=== PATIENT | male | born 1990 | race African-American/Black ===

== ENCOUNTER 2016-08-27 19:50 | Emergency (ER) | payer OTHER ==
[~2016-08-27] VITALS: Ht 190.5 cm; Wt 90.7 kg
[2016-08-27] MEDS ORDERED: AUGM875T27 PO (21:52)
[2016-08-27] MEDS ORDERED: IBUPROFEN 800 MG TAB PO ONE (22:00)
[2016-08-27] MEDS ORDERED: AUGMENTIN 875 MG TAB PO ONE (22:00)
[2016-08-27 22:26] VITALS: BP 145/94
== END 2016-08-27 22:27 | disposition home or self-care (01) ==
LOC: M ED 21:44
DX: H65.193 Other acute nonsuppurative otitis media, bilateral (principal); J06.9 Acute upper respiratory infection, unspecified; F17.200 Nicotine dependence, unspecified, uncomplicated

== ENCOUNTER 2017-01-28 03:58 | Emergency (ER) | payer OTHER ==
[~2017-01-28] VITALS: Ht 190.5 cm; Wt 97.2 kg
[~2017-01-28 03:58] MED LIST: AUGM875T28 PO
[2017-01-28 04:05] VITALS: BP 129/71
[2017-01-28] MEDS ORDERED: BACT800T5 PO (04:43)
[2017-01-28] MEDS ORDERED: BACTRIM 160MG/800MG DS TAB PO ONE (04:45)
== END 2017-01-28 05:14 | disposition home or self-care (01) ==
LOC: M ED 03:58
DX: L03.213 Periorbital cellulitis (principal)

== ENCOUNTER 2017-07-29 21:10 | Emergency (ER) | payer OTHER ==
[2017-07-30] MEDS: PERCOCET 5MG/325MG TAB PO (00:14)
[2017-07-30] MEDS: COLCHICINE 0.6 MG TAB PO (00:14)
[2017-07-30 00:20] LABS: ANION GAP 4 MEQ/L (8-16); BLOOD UREA NITROGEN 5 MG/DL (7-18); C REACTIVE PROTEIN QUANTITATIV < 0.30 MG/DL (0.00-0.30); CALCIUM LEVEL 8.7 MG/DL (8.5-10.1); CARBON DIOXIDE LEVEL 32 MEQ/L (21-32); CHLORIDE LEVEL 106 MEQ/L (98-107); CREATININE FOR GFR 1.09 MG/DL (0.70-1.30); GLOMERULAR FILTRATION RATE > 60.0 (>60); GLUCOSE, FASTING 109 MG/DL (70-100); SODIUM LEVEL 142 MEQ/L (136-145); URIC ACID 6.4 MG/DL (3.5-7.2)
== END 2017-07-30 00:57 | disposition home or self-care (01) ==
LOC: M ED 07-30 00:57
DX: M10.9 Gout, unspecified (principal)
CPT/HCPCS: 73630